=== PATIENT | male | born 1980 | race African-American/Black ===

== ENCOUNTER 2016-09-02 17:08 | Emergency (ER) | payer OTHER ==
[~2016-09-02 17:08] MED LIST: ALBUTEROL17 GM INH; DOXYCYCLINE HY100 M1 PO; HYCODAN60 ML 5MG/ PO; LASIX20 MG PO; LISINOPRIL; LISINOPRIL10 MG PO; PHENERGAN PO; ZOFRAN SL; [UNRECOGNIZED DRUG - REMARK]
[2016-09-02 17:38] LABS: INFLUENZA A NEG (NEG); INFLUENZA B NEG (NEG)
== END 2016-09-02 18:27 | disposition home or self-care (01) ==
LOC: CFTX 17:08
PROVIDERS: Nurse Practitioner
DX: J02.0 Streptococcal pharyngitis (principal); H61.22 Impacted cerumen, left ear; I10 Essential (primary) hypertension; F17.210 Nicotine dependence, cigarettes, uncomplicated; Z88.0 Allergy status to penicillin
CPT/HCPCS: 69210; 87804; 87880; 96372; 99283; J0561

== ENCOUNTER 2016-10-27 20:40 | Emergency (ER) | payer OTHER ==
--- NOTE | ~2016-10-27 | CR72 ---
[facility] A Service of [facility] RADIOLOGY TEXT RESULTS PATIENT: LOUIS DODSON LOCATION: [facility] : 76 UNIT #: [id number] AGE: [address]: Rehan Cota MD SEX: M ORDER DR: [id number] [facility] [address] [place], [place] [address] [id number] E MR#: [id number] Acc #: [id number] NAME: LOUIS DODSON : 1980 SEX: M STUDY DATE/TIME: 10/27/2016 21:52 UNIT: [facility] ROOM: STUDY DESCRIPTION: CR Chest Single View Portable Attending Physician: Rehan Cota M.D. Ordering Physician: Rehan Cota M.D. Primary Care Physician: No Primary Care Physician MEDICAL IMAGING REPORT This report is preliminary unless electronic signature is present EXAM Portable chest. DATE OF EXAM 10/27/2016, at 21:52. INDICATIONS Cough, chills and weakness for the last several days. FINDINGS AP portable chest compared with 02/02/2014. Cardiac and mediastinal contours are normal. Lungs are clear. No pneumothorax is seen. IMPRESSION No active disease. Dictated by... Dusty Villagran Jr., M.D. THIS IS AN ELECTRONICALLY VERIFIED REPORT Dusty Villagran Jr., M.D. at 10/28/2016 5:34 AM JAKE/jose TD: 10/27/2016 23:10 JOB #: [id number] MEDICAL IMAGING REPORT Page 1 of 1 COPY
[2016-10-27 23:53] LABS: URINE SOURCE CLEAN CATCH
[2016-10-27 23:58] LABS: URINE APPEARANCE CLOUDY; URINE BILIRUBIN NEG (NEG); URINE BLOOD 1+ (NEG); URINE COLOR YELLOW; URINE GLUCOSE NEG (NEG); URINE KETONE NEG (NEG); URINE LEUKOCYTE ESTERASE 3+ (NEG); URINE NITRATE POS (NEG); URINE PROTEIN 1+ (NEG); URINE SPECIFIC GRAVITY 1.017 (1.003-1.035)
[2016-10-28] LABS: CULTURE INDICATED? YES; URINE BACTERIA AUWI 4+ (NEGATIVE); URINE SQUAMOUS EPITHELIAL CELL NONE SEEN /[HPF]; UWBCS1 AUWI 200-300 (0-5)
== END 2016-10-28 00:32 | disposition home or self-care (01) ==
LOC: CED 20:40
PROVIDERS: Emergency Medicine
DX: R51 Headache (principal); N39.0 Urinary tract infection, site not specified; I10 Essential (primary) hypertension; J45.909 Unspecified asthma, uncomplicated; F17.200 Nicotine dependence, unspecified, uncomplicated; Z88.0 Allergy status to penicillin
CPT/HCPCS: 71010; 81003; 87086; 87088; 87186; 96372; 99283; J0696